=== PATIENT | male | born 1990 | race Caucasian/White ===

== ENCOUNTER 2021-08-16 23:22 | Emergency (ER) | payer SELFPAY ==
[~2021-08-16] VITALS: Ht 185.4 cm; Wt 127.0 kg
[2021-08-17] VITALS: BP 151/64
--- NOTE | 2021-08-17 00:02 | NUR ---
TO LOBBY A/W BED AMBULATORY
[2021-08-17] MEDS ORDERED: HYDROcodone/APAP 5/325 MG 1 TAB TAB PO ONE (01:10)
[2021-08-17] MEDS ORDERED: LIDOCAINE 5% 1 EA PATCH TP ONE (02:25)
[2021-08-17] MEDS ORDERED: IBUP-2213 PO (02:35)
[2021-08-17] MEDS ORDERED: LID5T TP (02:35)
[2021-08-17] MEDS ORDERED: ACET-2619 PO (02:35)
[2021-08-17 03:03] VITALS: BP 132/72
--- NOTE | 2021-08-17 03:06 | NUR ---
PATIENT DC HOME STABLE AND IMPROVING VITALS SIGNS IN NORMAL LIMITS ALL DC INSTRUCTION GAVE AND EXPLAINE
[2021-08-17] MEDS ORDERED: LIDOCAINE 5% 1 EA PATCH TP SCH (09:00)
== END 2021-08-17 02:56 | disposition home or self-care (01) ==
LOC: MED 23:22
DX: S29.9XXA Unspecified injury of thorax, initial encounter (principal); S56.912A Strain of unspecified muscles, fascia and tendons at forearm level, left arm, initial encounter; S09.90XA Unspecified injury of head, initial encounter; V98.8XXA Other specified transport accidents, initial encounter; Y93.89 Activity, other specified; Y92.89 Other specified places as the place of occurrence of the external cause; Y99.8 Other external cause status
CPT/HCPCS: 70450; 71045; 73090; 90471; 90715; 99284